=== PATIENT | male | born 1970 | race Caucasian/White ===

== ENCOUNTER 2021-08-07 07:31 | Emergency (ER) | payer OTHER ==
[~2021-08-07] VITALS: Ht 180.3 cm; Wt 88.6 kg
[2021-08-07] MEDS ORDERED: ASPIRIN 325 MG TABLET PO ONE (08:00)
[2021-08-07] MEDS ORDERED: IV NORMAL SALINE 1,000ML 1,000 ML IV ONE (08:00)
--- NOTE | 2021-08-07 08:02 | PHYS DOC ---
Adult General HPI HPI Patient is a 51-year-old male presenting via POV for shortness of breath. He is 10 days out from recent positive COVID-19 test, he was not vaccinated. States he started becoming symptomatic today he was tested with mild URI symptoms. States this progressed into worsened upper respiratory symptoms prompting him to discuss case with his primary care physician who subsequently prescribed patient an albuterol inhaler, cefdinir, and Tessalon Perles. He has been taking these medications as scheduled without significant relief in symptoms. He reports in past 48 hours having several episodes of fever greater than 100.4 (TMax 103) that have all broken with either ibuprofen and/or Tylenol. States ongoing fatigue and lack of energy brought him in today. As mentioned, he has no known medical diagnoses and is not on any chronic medications. Review of Systems Review of Systems Fourteen body systems of review of systems have been reviewed. See HPI for pertinent positives and negative responses, other leahy all other systems are negative, non-pertinent or non-contributory Allergies Allergies Allergies Coded Allergies Type Severity Reaction Last Updated Verified No Known Drug Allergies 08/07/21 No Physical Exam Physical Exam Constitutional: Well developed, well nourished, no acute distress, non-toxic appearance. Appears fatigued HENT: Normocephalic, atraumatic, bilateral external ears normal, oropharynx moist, no oral exudates, nose normal. Eyes: PERRLA, EOMI, conjunctiva normal, no discharge. Neck: Normal range of motion, no tenderness, supple, no stridor. Cardiovascular: Heart rate regular, sinus rhythm, no murmurs rubs or gallops Lungs & Thorax: Bilateral breath sounds clear to auscultation Abdomen: Bowel sounds normal, soft, no tenderness, no masses, no pulsatile masses. Nonsurgical abdomen, no peritoneal signs Skin: Warm, dry, no erythema, no rash. Back: No tenderness, no CVA tenderness. Extremities: No tenderness, no cyanosis, no clubbing, ROM intact, no edema. Neurologic: Alert and oriented X 3, grossly normal motor & sensory function, no focal deficits noted. Psychologic: Affect normal, judgement normal, mood normal. Current Patient Data Vital Signs Vital Signs Date Time Temp Pulse Resp B/P (MAP) Pulse Ox O2 Delivery O2 Flow Rate FiO2 08/07/21 08:25 99.3 87 22 154/85 (108) 95 Room Air Vital Signs Date Time Temp Pulse Resp B/P (MAP) Pulse Ox O2 Delivery O2 Flow Rate FiO2 08/07/21 08:25 99.3 87 22 154/85 (108) 95 Room Air Lab Results Laboratory Tests Test 08/07/21 08:10 White Blood Count 4.4 x10^3/uL Red Blood Count 5.80 x10^6/uL Hemoglobin 19.0 g/dL Hematocrit 55.9 % Mean Corpuscular Volume 96 fL Mean Corpuscular Hemoglobin 33 pg Mean Corpuscular Hemoglobin Concent 34 g/dL Red Cell Distribution Width 14.0 % Platelet Count 128 x10^3/uL Neutrophils (%) (Auto) 73 % Lymphocytes (%) (Auto) 16 % Monocytes (%) (Auto) 11 % Eosinophils (%) (Auto) 0 % Basophils (%) (Auto) 0 % Neutrophils # (Auto) 3.2 x10^3uL Lymphocytes # (Auto) 0.7 x10^3/uL Monocytes # (Auto) 0.5 x10^3/uL Eosinophils # (Auto) 0.0 x10^3/uL Basophils # (Auto) 0.0 x10^3/uL D-Dimer (Barb) 0.46 mg/L Sodium Level 132 mmol/L Potassium Level 4.2 mmol/L Chloride Level 97 mmol/L Carbon Dioxide Level 23 mmol/L Anion Gap 12 Blood Urea Nitrogen 15 mg/dL Creatinine 0.9 mg/dL Estimated GFR (Cockcroft-Gault) 88.3 BUN/Creatinine Ratio 17 Glucose Level 113 mg/dL Calcium Level 9.1 mg/dL Total Bilirubin 1.5 mg/dL Aspartate Amino Transf (AST/SGOT) 132 U/L Alanine Aminotransferase (ALT/SGPT) 200 U/L Alkaline Phosphatase 90 U/L Troponin I High Sensitivity 70 ng/L Total Protein 7.2 g/dL Albumin 3.6 g/dL Albumin/Globulin Ratio 1.0 Current Medications Medications (Trade) Dose Ordered Sig/Kita Route PRN Reason Start Time Stop Time Status Last Admin Dose Admin Sodium Chloride 1,000 ml @ 1,000 mls/hr 1X ONCE IV 08/07/21 08:00 08/07/21 08:59 DC Aspirin (Oseas Aspirin) 325 mg 1X ONCE PO 08/07/21 08:00 08/07/21 08:20 DC EKG EKG EKG ordered interpreted by myself is a sinus rhythm at 85 bpm, unremarkable intervals, no axis deviation, no acute ischemic findings, no STEMI Radiology/Procedures Radiology/Procedures XR CHEST 1V History: Covid. Short of breath. Comparison: None. Technique: Portable AP radiograph of the chest. Findings: The lungs are adequately inflated. There are diffuse subtle airspace opacities. No pleural effusion or pneumothorax. The cardiomediastinal silhouette and pulmonary vasculature are within normal limits. Osseous structures and soft tissues are unremarkable. Impression: 1. Subtle bilateral airspace opacities are consistent with Covid pneumonia. Electronically signed by: Stevan Jack MD (08/07/2021 8:09 AM) [id number] Heart Score C/O Chest Pain: No HEART Score for Chest Pain: HEART Score for Chest Pain Response (Comments) Value History Moderately Suspicious 1 ECG Nonspecific Repolarizatio 1 Age >45 - < 65 1 Risk Factors 1 or 2 Risk Factors 1 Total 4 Risk Factors: Risk Factors: DM, Current or recent (<one month) smoker, HTN, HLP, family history of CAD, obesity. Risk Scores: Risk Factors: DM, Current or recent (<one month) smoker, HTN, HLP, family history of CAD, obesity. Course & Med Decision Making Course & Med Decision Making ABCs unremarkable. I disclosed entirety of ER findings and discussed most likely diagnosis of weakness and fatigue in a recently diagnosed COVID-19 individual that was not vaccinated. Other diagnoses were discussed with patient such as ACS, pneumothorax, pulmonary embolism and other life-threatening diagnoses but all deemed less likely causes of patient's presentation. Plan of care discussed at length with need for close outpatient follow-up to review today's ER visit stressed. Strict return precautions were also discussed at length with good understanding verbalized by patient. Patient voiced understanding and agreement with the plan. Patient knows to come back for repeat evaluation if concerning signs or symptoms present prior to outpatient follow-up. Hemodynamically stable, ambulatory and well-appearing at time of disposition. Dragon Disclaimer Dragon Disclaimer This electronic medical record was generated, in whole or in part, using a voice recognition dictation system. Departure Departure: Impression: Primary Impression: [id number] syndrome Disposition: HOME / SELF CARE / HOMELESS Condition: STABLE Referrals: TANIA SALCEDO (PCP) Additional Instructions: As discussed prior to ER departure, your vitals, physical exam and comprehensive ER work-up were nonconcerning for any emergent or surgical issues. You should continue taking antibiotics and other medications prescribed by your primary care physician for your recent diagnosis of COVID-19. In addition, you were given a new prescription today for an inhaled steroid inhaler that should be used daily to completion as scheduled. You need to call your primary care calviny sician immediately after ER departure to review ER visit and need for close outpatient follow-up. Any concerning signs or symptoms present prior to outpatient follow-up please do not hesitate to come back for repeat evaluation. It was a pleasure to take care of you and I wish you going forward Scripts Budesonide (Budesonide) 8.43 Ml Salome.pump 2 SPR NS DAILY for shob for 30 Days, #1 MG 0 Refills Prov: YUKO BAKER DO 08/07/21 YUKO BAKER DO Aug 07, 2021 08:02
--- NOTE | 2021-08-07 08:11 | RAD ---
XR CHEST 1V History: Covid. Short of breath. Comparison: None. Technique: Portable AP radiograph of the chest. Findings: The lungs are adequately inflated. There are diffuse subtle airspace opacities. No pleural effusion o r pneumothorax. The cardiomediastinal silhouette and pulmonary vasculature are within normal limits. Osseous structures and soft tissues are unremarkable. Impression: 1. Subtle bilateral airspace opacities are consistent with Covid pneumonia. Electronically signed by: Stevan Jack MD (08/07/2021 8:09 AM) [id number]
--- NOTE | 2021-08-07 08:14 | EKG ---
[address] [address] Test Date: 2021-08-07 Test Time: 08:00:37 Pat Name: AIMEE ANGUIANO Department: Room: Gender: M Tick Inspector: UBRANO : 1970 Requested By: YUKO BAKER Order Number: [id number] Reading MD: Jared Leblanc Measurements Intervals Randall Rate: 85 P: 31 WV: 156 QRS: 6 QRSD: 82 T: 24 QT: 318 QTc: 379 Interpretive Statements SINUS RHYTHM LEFT ATRIAL ABNORMALITY R-S TRANSITION ZONE IN V LEADS DISPLACED TO THE LEFT NON SPECIFIC ST-T WAVE CHANGES ABNORMAL ECG RI6.02 No previous ECG available for comparison Electronically Signed On 08-10-2021 9:40:02 SHOW DESIGN SUPERVISOR by Jared Leblanc
[2021-08-07 08:25] VITALS: BP 154/85
[2021-08-07 08:34] LABS: BASO % 0 % (0-3); EOS % 0 % (0-3); HEMATOCRIT 55.9 % (39.0-53.0); LYMPH # 0.7 x10^3/uL (1.0-4.8); LYMPH % 16 % (24-48); MEAN CORPUSCULAR HEMOGLOBIN 33 pg (25-35); MEAN CORPUSCULAR HGB CONC 34 g/dL (31-37); MEAN CORPUSCULAR VOLUME 96 fL (79-100); MONO # 0.5 x10^3/uL (0.0-1.1); MONO % 11 % (0-9); NEUT # 3.2 x10^3uL (1.8-7.7); NEUT % 73 % (31-73); PLATELET COUNT 128 x10^3/uL (140-400); WHITE BLOOD COUNT 4.4 x10^3/uL (4.0-11.0)
[2021-08-07 08:40] LABS: CALCIUM 9.1 mg/dL (8.5-10.1); CREATININE 0.9 mg/dL (0.7-1.3); GFR 88.3; POTASSIUM 4.2 mmol/L (3.5-5.1)
[2021-08-07 08:46] LABS: ALBUMIN 3.6 g/dL (3.4-5.0); TOTAL BILIRUBIN 1.5 mg/dL (0.2-1.0); TOTAL PROTEIN 7.2 g/dL (6.4-8.2)
[2021-08-07] MEDS ORDERED: BUDE8.435 NS (09:06)
== END 2021-08-07 09:15 | disposition home or self-care (01) ==
LOC: ER 07:31
DX: R06.02 Shortness of breath (principal); U09.9 Post COVID-19 condition, unspecified
CPT/HCPCS: 36415; 71045; 80053; 84484; 85025; 85379; 87040; 93005; 99285-25